=== PATIENT | female | born 1985 | race Caucasian/White ===

== ENCOUNTER 2023-08-17 10:38 | Emergency (ER) | payer SELFPAY ==
[2023-08-17 10:45] VITALS: BP 119/81
--- NOTE | 2023-08-17 10:55 | ED.GENMED ---
History of Present Illness
General
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
Source: patient
Exam Limitations: none
Time Seen by Provider: 08/17/23 10:54
Nursing documentation reviewed up to this point in time: agreed with
Travel History
Have you had any contact with someone who has COVID-19?: No
Do you have any symptoms of coronavirus? Fever > 100 degrees, chills, cough, shortness of breath, sore throat, loss of taste or smell, muscle aches, or headache?: No
History of Present Illness
History of Present Illness:
Patient is a 38-year-old female who complains of a laceration to her left labia that occurred while having sexual intercourse. She reports this occurred around 4 in the morning. Stopped bleeding but then when she removed the gauze bleeding started
again. She denies any other injuries. She is up-to-date on tetanus.
Review of Systems
Review of Systems
Allergies reviewed?: Yes
Constitutional: Reports no symptoms
ABD/GI: Reports no symptoms; Denies nausea or vomiting
: Reports other (left inner labial laceration)
Musculoskeletal: Reports no symptoms
Skin: Reports no symptoms
Neurological: Reports no symptoms
Psychiatric: Reports no symptoms
Phy Exam
General Physical Exam
General Presentation: no apparent distress
General age: appears stated age
General Skin: warm and dry
General Habitus: normal
General Mental: alert
General Hydration: appears well hydrated
Genitourinary Exam Female
Exam Female: other (Small superficial/partial-thickness laceration to left inner labia approximately 2 cm no active bleeding )
Neurological Exam
Neurological Exam: alert and oriented x3
Musculoskeletal Exam
Musculoskeletal Exam: full ROM
Skin Exam
Skin Exam: normal color and warm/dry
Psychiatric Exam
Psychiatric Exam: normal mood/affect
Course
Vital Signs
Initial and Last Documented VS:
Initial Vital Signs
Temp Pulse Resp BP Pulse Ox
98.0 F 73 18 119/81 98
08/17/23 10:45 08/17/23 10:45 08/17/23 10:45 08/17/23 10:45 08/17/23 10:45
Last Documented Vital Signs
Temp Pulse Resp BP Pulse Ox
98.0 F 73 18 119/81 98
08/17/23 10:45 08/17/23 10:45 08/17/23 10:45 08/17/23 10:45 08/17/23 10:45
Procedures
Other
Indication for procedure:: Laceration
Additional Procedure:
Laceration to inner labia was irrigated with copious grey normal saline does not require closure antibiotic ointment applied.
MDM/Problems Addressed
MDM/Problems Addressed:
Simple superficial/partial-thickness laceration to left inner labia no active bleeding .
wound was cleansed by me does not require closure patient instructed on keeping area very clean wash with soap and water twice a day, keeping area moist with antibiotic ointment no obvious sexual intercourse for sexual activity until wound is healed
she is to return if any worsening of symptoms.
*Pulse Oximetry
Patient hypoxic: no
*Critical Care Note
Total Time (30-74mins, 75-104mins- exclusive of procedures): Not Applicable
ED Attending Note
-
Portions of this chart may have been created with voice recognition software.� Occasional wrong word or��sound alike� substitutions may have occurred due to the inherent limitations of voice recognition software.
Discharge Plan
Departure
Patient Disposition: Home (Routine Discharge)
Date of Disposition: 08/17/23
Time of Disposition: 11:38
Patient with high blood pressure during this ER visit?: No
Condition: Fair
Covid-19: Not Applicable
Discharge Problem:
Laceration
Instructions: Laceration
Activity Restrictions/Additional Instructions:
As discussed keep area clean wash with soap and water twice a day pat dry apply small layer of antibiotic ointment to the area. Keep area moist to improve healing. Return if any signs of infection increased pain swelling redness drainage fever
chills. Follow-up with your wedding day coordinator as needed in the next several days.
Interventions
Interventions:
*Risk Screen - Suicide Last Done: 08/17/23 11:00
*General Assessment Last Done: 08/17/23 11:00
*Neglect/Abuse Screening Last Done: 08/17/23 11:00
ED- Fall Risk Assessment Last Done: 08/17/23 11:00
*ED COVID-19 Vaccine History Last Done: 08/17/23 11:00
*Nursing Disposition Last Done: 08/17/23 11:51
ED-Female Genitourinary Assessment Last Done: 08/17/23 11:00
Discharge Date and Time
Discharge Date/Time: 08/17/23 12:32
Print Language: LITHUANIAN
== END 2023-08-17 12:32 | disposition home or self-care (01) ==
LOC: EMR 10:38
PROVIDERS: EMERGENCY PHYSICIAN Emergency Medicine
DX: S31.41XA Laceration without foreign body of vagina and vulva, initial encounter (principal); X58.XXXA Exposure to other specified factors, initial encounter
CPT/HCPCS: 99282